=== PATIENT | female | born 1950 | race American Indian/Alaskan Native ===

== ENCOUNTER 2018-03-22 08:38 | Inpatient (IN) | payer MEDICARE, OTHER ==
[~2018-03-22] VITALS: Ht 165.1 cm; Wt 52.0 kg
[2018-03-22] VITALS (9 sets, daily range): BP systolic 120–204; BP diastolic 67–106
[2018-03-22] MEDS: K, MAG and/or Phos replacement - Verify level? MC SCH (08:00)
[2018-03-22] MEDS ORDERED: ondansetron/PF 4mg/2ml inj IV ONE ×2 (09:30→10:00)
[2018-03-22] MEDS ORDERED: morphine 4 MG/ML inj SYRINge IV ONE ×2 (09:30→10:00)
[2018-03-22 09:37] LABS: BASOPHILS # (AUTO) 0.1 X10'3 (0-0.2); BASOPHILS % (AUTO) 1.3 % (0-1); EOSINOPHILS # (AUTO) 0.2 X10'3 (0-0.9); EOSINOPHILS % (AUTO) 2.3 % (0-6); HEMATOCRIT 41.3 % (35.0-45.0); LYMPHOCYTES # (AUTO) 1.7 X10'3 (1.1-4.8); LYMPHOCYTES % (AUTO) 19.2 % (21-51); MEAN CORPUSCULAR HEMOGLOBIN 30.7 PG (27.0-31.0); MEAN CORPUSCULAR HGB CONC 33.9 % (33.0-36.5); MEAN CORPUSCULAR VOLUME 90.6 FL (78-98); MEAN PLATELET VOLUME 8.5 FL (7.4-10.4); MONOCYTES # (AUTO) 0.8 X10'3 (0-0.9); MONOCYTES % (AUTO) 8.7 % (2-12); NEUTROPHILS % (AUTO) 68.5 % (42-75); PLATELET COUNT 212 X10'3 (140-440); RED BLOOD COUNT 4.56 X10'6 (4.20-5.60); RED CELL DISTRIBUTION WIDTH 14.6 % (11.5-14.5); WHITE BLOOD COUNT 8.7 X10'3 (4.5-11.0)
[2018-03-22 09:50] LABS: ALANINE AMINOTRANSFERASE 17 U/L (12-78); ALBUMIN 2.9 G/DL (3.4-5.0); ALBUMIN/GLOBULIN RATIO 0.9 (1.1-1.5); ALKALINE PHOSPHATASE 86 IU/L (46-116); ANION GAP 6 (8-16); ASPARTATE AMINO TRANSFERASE 16 U/L (10-37); BILIRUBIN,TOTAL 0.3 MG/DL (0.1-1.0); BLOOD UREA NITROGEN 13 MG/DL (7-18); BUN/CREATININE RATIO 18.8 (6.6-38.0); C-REACTIVE PROTEIN 0.44 MG/DL (0.0-0.5); CALCIUM 8.2 MG/DL (8.5-10.1); CHLORIDE 107 MMOL/L (99-107); CREATININE 0.69 MG/DL (0.40-0.90); GLUCOSE 104 MG/DL (70-104); SODIUM 141 MMOL/L (135-145); TOTAL CARBON DIOXIDE 28.5 MMOL/L (24-32); TOTAL PROTEIN 6.1 G/DL (6.4-8.2); eGFR 85 ML/MIN
[2018-03-22] MEDS ORDERED: iohexol 350MG/ML 100ml bottle IV ONE (10:17)
[2018-03-22] MEDS ORDERED: iohexol 350 MG/ML 50ML vial IV ONE (10:17)
[2018-03-22] MEDS ORDERED: fentaNYL/PF 50MCG/1 ML 2ML syringe IV ONE (11:50)
[2018-03-22] MEDS ORDERED: midazolam 2 mg/2 ml injection IV PRN (13:00)
[2018-03-22] MEDS ORDERED: LIDOcaine 1%/PF 5ML 10 MG/ML VIAL SQ ONE (13:00)
[2018-03-22] MEDS ORDERED: heparin 1,000 UNITS/NS 500ml 500 ML ICATH ONE (13:00)
[2018-03-22] MEDS ORDERED: fentaNYL/PF 50MCG/1 ML 2ML syringe IV PRN (13:00)
[2018-03-22] MEDS ORDERED: iohexol 300mg/ml 100ml inj. ONE (13:13)
[2018-03-22] MEDS ORDERED: heparin 1,000 UNITS/NS 500ml 500 ML ONE ×2 (13:24→13:57)
[2018-03-22] MEDS ORDERED: midazolam 2 mg/2 ml injection ONE (13:24)
[2018-03-22] MEDS ORDERED: LIDOcaine 0.5% (5mg/ml) 50ml vial ONE (13:24)
[2018-03-22] MEDS ORDERED: fentaNYL/PF 50MCG/1 ML 2ML syringe ONE (13:24)
[2018-03-22] MEDS ORDERED: tPA-cathflo 2 MG/2 ml IV flush IVF ONE (13:45)
[2018-03-22] MEDS ORDERED: tPA-cathflo 2mg/2ml IV flush 4 MG in normal saline 100ml IV soln 100 ML ICATH SCH (13:45)
[2018-03-22] MEDS ORDERED: tPA-cathflo 2 MG/2 ml IV flush ONE (13:52)
[2018-03-22] MEDS ORDERED: magnesium hydroxide 30ml (MOM) UD suspension PO PRN (14:05)
[2018-03-22] MEDS ORDERED: sodium phosphate inj. 30 MMOL in dextrose 5%-water 250 ML IV PRN (14:05)
[2018-03-22] MEDS ORDERED: acetaminophen 325mg tablet PO PRN (14:05)
[2018-03-22] MEDS ORDERED: magnesium Cl slow-release 64mg tablet PO PRN (14:05)
[2018-03-22] MEDS ORDERED: magnesium 1gm/100ml D5W IVPB 100 ML IV PRN (14:05)
[2018-03-22] MEDS ORDERED: Neutra Phos packet PO PRN (14:05)
[2018-03-22] MEDS ORDERED: sodium phosphate inj. 15 MMOL in dextrose 5%-water 150 ML IV PRN (14:05)
[2018-03-22] MEDS ORDERED: magnesium 4gm in 100ml NS 100 ML IV PRN (14:05)
[2018-03-22] MEDS ORDERED: morphine 2 MG/ML inj. syringe IV PRN (14:05)
[2018-03-22] MEDS ORDERED: potassium Cl 20 mEq SR tablet PO PRN ×2 (14:05)
[2018-03-22] MEDS ORDERED: ondansetron/PF 4mg/2ml inj IV PRN (14:05)
[2018-03-22] MEDS ORDERED: DIAZ10TA4 PO (14:18)
[2018-03-22] MEDS ORDERED: OXYC30TA88 PO (14:18)
[2018-03-22] MEDS: HYDROmorphone/NS 1 mg/ml CADD 50 ML IV SCH ×6 (15:00→23:00)
[2018-03-22] MEDS ORDERED: HYDROmorphone 1 mg/ml syringe IV ONE (15:50)
[2018-03-22] MEDS: heparin 1,000 UNITS/NS 500ml 500 ML IV SCH (16:03)
[2018-03-22] MEDS: normal saline 1000ml 1,000 ML IV SCH (16:07)
[2018-03-22] MEDS: acetaminophen 325mg tablet PO PRN (17:50)
[2018-03-22] MEDS: pantoprazole 40 MG vial IV SCH (17:51)
[2018-03-22] MEDS: tPA-cathflo 2mg/2ml IV flush 4 MG in normal saline 100ml IV soln 100 ML ICATH SCH (20:46)
[2018-03-22] MEDS: docusate sod 100mg capsule PO SCH (21:25)
[2018-03-22] MEDS: sennosides/docusate sodium tablet PO SCH (21:37)
[2018-03-22 22:24] LABS: HEMATOCRIT 35.9 % (35.0-45.0); HEMOGLOBIN 12.2 g/dl (12.0-16.0); MEAN CORPUSCULAR HEMOGLOBIN 30.1 PG (27.0-31.0); MEAN CORPUSCULAR HGB CONC 33.9 % (33.0-36.5); MEAN CORPUSCULAR VOLUME 88.9 FL (78-98); MEAN PLATELET VOLUME 7.7 FL (7.4-10.4); PLATELET COUNT 150 X10'3 (140-440); RED BLOOD COUNT 4.04 X10'6 (4.20-5.60); RED CELL DISTRIBUTION WIDTH 14.4 % (11.5-14.5); WHITE BLOOD COUNT 8.1 X10'3 (4.5-11.0)
[2018-03-22 23:03] LABS: PARTIAL THROMBOPLASTIN TIME 30 SECONDS (22-32)
[2018-03-23] VITALS (28 sets, daily range): BP systolic 116–169; BP diastolic 70–103
[2018-03-23] MEDS: HYDROmorphone/NS 1 mg/ml CADD 50 ML IV SCH ×8 (01:00→13:18)
[2018-03-23] MEDS: heparin 1,000 UNITS/NS 500ml 500 ML IV SCH (01:59)
[2018-03-23 03:37] LABS: BASOPHILS % (AUTO) 0.6 % (0-1); EOSINOPHILS # (AUTO) 0.2 X10'3 (0-0.9); EOSINOPHILS % (AUTO) 2.7 % (0-6); HEMOGLOBIN 12.4 g/dl (12.0-16.0); LYMPHOCYTES # (AUTO) 1.4 X10'3 (1.1-4.8); LYMPHOCYTES % (AUTO) 18.3 % (21-51); MEAN CORPUSCULAR HEMOGLOBIN 30.4 PG (27.0-31.0); MEAN CORPUSCULAR HGB CONC 33.6 % (33.0-36.5); MEAN CORPUSCULAR VOLUME 90.5 FL (78-98); MEAN PLATELET VOLUME 7.9 FL (7.4-10.4); MONOCYTES # (AUTO) 0.6 X10'3 (0-0.9); MONOCYTES % (AUTO) 8.5 % (2-12); NEUTROPHILS # (AUTO) 5.2 X10'3 (1.8-7.7); NEUTROPHILS % (AUTO) 69.9 % (42-75); PLATELET COUNT 149 X10'3 (140-440); RED BLOOD COUNT 4.09 X10'6 (4.20-5.60); RED CELL DISTRIBUTION WIDTH 14.1 % (11.5-14.5); WHITE BLOOD COUNT 7.4 X10'3 (4.5-11.0)
[2018-03-23 03:50] LABS: PARTIAL THROMBOPLASTIN TIME 29 SECONDS (22-32); PROTHROMBIN TIME 10.1 SECONDS (9.0-12.0)
[2018-03-23 03:52] LABS: ALANINE AMINOTRANSFERASE 10 U/L (12-78); ALBUMIN 2.4 G/DL (3.4-5.0); ALBUMIN/GLOBULIN RATIO 0.8 (1.1-1.5); ALKALINE PHOSPHATASE 69 IU/L (46-116); ANION GAP 8 (8-16); ASPARTATE AMINO TRANSFERASE 10 U/L (10-37); BILIRUBIN,TOTAL 0.4 MG/DL (0.1-1.0); BLOOD UREA NITROGEN 8 MG/DL (7-18); BUN/CREATININE RATIO 14.3 (6.6-38.0); CALCIUM 7.8 MG/DL (8.5-10.1); CHLORIDE 109 MMOL/L (99-107); CREATININE 0.56 MG/DL (0.40-0.90); GLUCOSE 99 MG/DL (70-104); MAGNESIUM 2.4 MG/DL (1.5-2.4); PHOSPHORUS 4.2 MG/DL (2.3-4.5); POTASSIUM 3.9 MMOL/L (3.5-5.1); SODIUM 143 MMOL/L (135-145); TOTAL CARBON DIOXIDE 25.7 MMOL/L (24-32); TOTAL PROTEIN 5.3 G/DL (6.4-8.2); eGFR > 90 ML/MIN
[2018-03-23] MEDS: normal saline 1000ml 1,000 ML IV SCH ×2 (04:13→16:49)
[2018-03-23] MEDS: tPA-cathflo 2mg/2ml IV flush 4 MG in normal saline 100ml IV soln 100 ML ICATH SCH (05:33)
[2018-03-23] MEDS: K, MAG and/or Phos replacement - Verify level? MC SCH (08:00)
[2018-03-23] MEDS ORDERED: methylnaltrexone br 12mg/0.6ml inj***SubQ only SQ SCH (08:00)
[2018-03-23] MEDS: pantoprazole 40 MG vial IV SCH (08:07)
[2018-03-23] MEDS: docusate sod 100mg capsule PO SCH ×2 (08:07→20:35)
[2018-03-23 10:00] LABS: HEMOGLOBIN 12.8 g/dl (12.0-16.0); MEAN CORPUSCULAR HEMOGLOBIN 30.5 PG (27.0-31.0); MEAN CORPUSCULAR HGB CONC 33.8 % (33.0-36.5); MEAN CORPUSCULAR VOLUME 90.4 FL (78-98); MEAN PLATELET VOLUME 8.3 FL (7.4-10.4); PLATELET COUNT 141 X10'3 (140-440); RED CELL DISTRIBUTION WIDTH 14.4 % (11.5-14.5); WHITE BLOOD COUNT 9.8 X10'3 (4.5-11.0)
[2018-03-23] MEDS: acetaminophen 325mg tablet PO PRN (10:02)
[2018-03-23] MEDS ORDERED: iohexol 300mg/ml 100ml inj. ONE (10:57)
[2018-03-23] MEDS ORDERED: fentaNYL/PF 50MCG/1 ML 2ML syringe ONE (11:30)
[2018-03-23] MEDS ORDERED: LIDOcaine 0.5% (5mg/ml) 50ml vial ONE (11:31)
[2018-03-23] MEDS ORDERED: heparin 1,000 UNITS/NS 500ml 500 ML ONE (11:31)
[2018-03-23] MEDS ORDERED: fentaNYL/PF 50MCG/1 ML 2ML syringe IV PRN (11:35)
[2018-03-23] MEDS ORDERED: heparin 1,000 UNITS/NS 500ml 500 ML ICATH ONE (11:35)
[2018-03-23] MEDS ORDERED: iohexol 300 MG/1 ML 50ml polymer ONE (11:39)
[2018-03-23] MEDS ORDERED: heparin 10,000 units/1 ML INJ IV ONE (12:00)
[2018-03-23] MEDS ORDERED: heparin 10,000 units/1 ML INJ IV PRN (12:00)
[2018-03-23] MEDS ORDERED: oxyCODONE IR 5mg (immed. release) tablet PO PRN (13:40)
[2018-03-23] MEDS ORDERED: CADD PCA waste documentation MC PRN (16:15)
[2018-03-23] MEDS: oxyCODONE IR 5mg (immed. release) tablet PO PRN (17:53)
[2018-03-23] MEDS: sennosides/docusate sodium tablet PO SCH (20:36)
[2018-03-24] VITALS (15 sets, daily range): BP systolic 116–160; BP diastolic 60–90
[2018-03-24] MEDS: oxyCODONE IR 5mg (immed. release) tablet PO PRN ×3 (00:30→13:03)
[2018-03-24 03:19] LABS: BASOPHILS % (AUTO) 0.3 % (0-1); EOSINOPHILS # (AUTO) 0.2 X10'3 (0-0.9); EOSINOPHILS % (AUTO) 1.7 % (0-6); HEMATOCRIT 33.8 % (35.0-45.0); HEMOGLOBIN 11.6 g/dl (12.0-16.0); LYMPHOCYTES # (AUTO) 1.6 X10'3 (1.1-4.8); LYMPHOCYTES % (AUTO) 16.6 % (21-51); MEAN CORPUSCULAR HEMOGLOBIN 30.4 PG (27.0-31.0); MEAN CORPUSCULAR HGB CONC 34.2 % (33.0-36.5); MEAN CORPUSCULAR VOLUME 88.9 FL (78-98); MEAN PLATELET VOLUME 8.3 FL (7.4-10.4); MONOCYTES # (AUTO) 0.9 X10'3 (0-0.9); MONOCYTES % (AUTO) 9.3 % (2-12); NEUTROPHILS # (AUTO) 6.8 X10'3 (1.8-7.7); NEUTROPHILS % (AUTO) 72.1 % (42-75); PLATELET COUNT 134 X10'3 (140-440); RED CELL DISTRIBUTION WIDTH 14.2 % (11.5-14.5); WHITE BLOOD COUNT 9.5 X10'3 (4.5-11.0)
[2018-03-24 03:34] LABS: ALANINE AMINOTRANSFERASE 10 U/L (12-78); ALBUMIN 2.1 G/DL (3.4-5.0); ALBUMIN/GLOBULIN RATIO 0.8 (1.1-1.5); ALKALINE PHOSPHATASE 62 IU/L (46-116); ANION GAP 7 (8-16); ASPARTATE AMINO TRANSFERASE 13 U/L (10-37); BILIRUBIN,TOTAL 0.4 MG/DL (0.1-1.0); BLOOD UREA NITROGEN 6 MG/DL (7-18); BUN/CREATININE RATIO 11.5 (6.6-38.0); CALCIUM 7.6 MG/DL (8.5-10.1); CHLORIDE 110 MMOL/L (99-107); CREATININE 0.52 MG/DL (0.40-0.90); GLUCOSE 106 MG/DL (70-104); MAGNESIUM 2.3 MG/DL (1.5-2.4); POTASSIUM 3.6 MMOL/L (3.5-5.1); SODIUM 144 MMOL/L (135-145); TOTAL CARBON DIOXIDE 26.7 MMOL/L (24-32); TOTAL PROTEIN 4.9 G/DL (6.4-8.2); eGFR > 90 ML/MIN
[2018-03-24] MEDS: normal saline 1000ml 1,000 ML IV SCH (05:01)
[2018-03-24] MEDS ORDERED: pantoprazole 40mg Tablet.DR PO SCH (07:30)
[2018-03-24] MEDS: docusate sod 100mg capsule PO SCH (08:00)
[2018-03-24] MEDS: K, MAG and/or Phos replacement - Verify level? MC SCH (08:00)
[2018-03-24] MEDS ORDERED: DABI75CA3 PO (12:04)
[2018-03-24] MEDS ORDERED: lactulose 20gm/30ml cup PO PRN (14:05)
[2018-03-24] MEDS ORDERED: dabigatran 150mg capsule PO SCH (14:40)
== END 2018-03-24 14:53 | disposition home or self-care (01) | DRG 253 ==
LOC: ER 08:39 → ICU 2S 14:05
PROC: B4201ZZ Computerized Tomography (CT Scan) of Abdominal Aorta using Low Osmolar Contrast (ICD-10-PCS; principal; 2018-03-22)
PROC: B42H1ZZ Computerized Tomography (CT Scan) of Bilateral Lower Extremity Arteries using Low Osmolar Contrast (ICD-10-PCS; 2018-03-22)
PROC: B41G1ZZ Fluoroscopy of Left Lower Extremity Arteries using Low Osmolar Contrast (ICD-10-PCS; 2018-03-22)
PROC: 3E05317 Introduction of Other Thrombolytic into Peripheral Artery, Percutaneous Approach (ICD-10-PCS; 2018-03-22)
PROC: 047N3ZZ Dilation of Left Popliteal Artery, Percutaneous Approach (ICD-10-PCS; 2018-03-23)
PROC: B41F1ZZ Fluoroscopy of Right Lower Extremity Arteries using Low Osmolar Contrast (ICD-10-PCS; 2018-03-23)
DX: I74.3 Embolism and thrombosis of arteries of the lower extremities (principal); I96 Gangrene, not elsewhere classified; F17.200 Nicotine dependence, unspecified, uncomplicated; I71.9 Aortic aneurysm of unspecified site, without rupture; G89.29 Other chronic pain; M54.9 Dorsalgia, unspecified; Z90.710 Acquired absence of both cervix and uterus; Z88.2 Allergy status to sulfonamides
CPT/HCPCS: 36415; 37211; 37214; 37224; 72191; 73706; 75635; 75710; 80053; 82948; 83735; 84100; 85025; 85027; 85384; 85610; 85651; 85730; 86140; 87070; 96374; 96375; 99152; 99153; 99285; A4620; A6213; A6219; A6257; A6258; A6449; C1758; C1760; C1769; C1894; C9113; J1170; J1644; J2001; J2250; J2270; J2405; J2997; J3010; J7030; Q9967